=== PATIENT | male | born 1985 | race Hispanic/Latino ===

== ENCOUNTER 2024-09-02 03:28 | Emergency (ER) | payer BC ==
[~2024-09-02] VITALS: Ht 175.3 cm; Wt 81.6 kg
--- NOTE | 2024-09-02 03:45 | ERN ---
General Chief Complaint: Sepsis Stated Complaint: FEVER, WEAK, SHAKY ONSET 0130 Time Seen by MD: 03:40 Source: patient History of Present Illness Initial Comments Male healthy comes in with sudden onset of chills fever shakiness and weakness. He has felt low energy two days prior to today and then woke up this morning around 3:00 a.m. with the chills weakness fever. In the ED he does not endorse any specific organ system as the source of his illness. He states no chest pain no shortness of breath no nausea no vomiting no problems urinating no problems defecating no heart rhythm changes. Vital signs in the ED show hypertension tachycardia fever to 101.7 a sepsis alert was initiated. 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 No nausea or vo miting no diarrhea no chest pain no shortness of breath no palpitations no abdominal pain no headaches moves all extremities no pain in his extremities. Results Laboratory and Microbiology Lab and Micro Result Laboratory Tests Test 09/02/24 03:46 09/02/24 04:26 White Blood Count 3.4 K/uL (4.8-10.8) L Red Blood Count 5.30 MIL/uL (4.50-6.20) Hemoglobin 16.1 g/dL (14.0-18.0) Hematocrit 46.2 % (42-54) Mean Corpuscular Volume 87.2 fL (79-99) Mean Corpuscular Hemoglobin 30.4 pg (27.0-33.0) Mean Corpuscular Hemoglobin Concent 34.8 g/dL (32.0-36.0) Red Cell Distribution Width 11.7 % (11.0-15.5) Platelet Count 157 K/uL (130-400) Mean Platelet Volume 9.7 fL (7.5-10.5) Immature Granulocyte % (Auto) 0.6 % (0-1) Neutrophils (%) (Auto) 71.4 % (40.0-77.0) Lymphocytes (%) (Auto) 24.7 % (21.0-51.0) Monocytes (%) (Auto) 1.8 % (3.0-13.0) L Eosinophils (%) (Auto) 0.9 % (0.0-8.0) Basophils (%) (Auto) 0.6 % (0.0-5.0) Neutrophils # (Auto) 2.4 K/uL (1.8-7.7) Lymphocytes # (Auto) 0.8 K/uL (1.0-4.8) L Monocytes # (Auto) 0.1 K/uL (0.1-1.0) Eosinophils # (Auto) 0.03 K/uL (0.00-0.70) Basophils # (Auto) 0.02 K/uL (0.00-0.20) Absolute Immature Granulocyte (auto 0.02 K/uL (0-1) Nucleated Red Blood Cells 0.0 % (0.0-0.19) D-Dimer Quantitative (PE/DVT) 861 ng/mL (0-500) *H Sodium Level 145 mmol/L (136-145) Potassium Level 3.7 mmol/L (3.5-5.1) Chloride Level 105 mmol/L (101-111) Carbon Dioxide Level 29 mmol/L (21-32) Blood Urea Nitrogen 12 mg/dL (7-18) Creatinine 1.1 mg/dL (0.5-1.3) Glomerular Filtration Rate Calc 87 mL/min (>90) Random Glucose 105 mg/dL (70-105) Lactic Acid Level 3.3 mmol/L (0.8-2.5) H Total Calcium 9.0 mg/dL (8.5-10.1) Total Creatine Kinase 134 U/L (21-232) Troponin I High Sensitivity 4 ng/L (4-75) Influenza Type A Antigen Negative For Type A Influenza Type B Antigen Negative For Type B SARS-CoV-2, RNA, NAAT NEGATIVE SARS CoV-2 Group A Streptococcus Rapid negative (NEGATIVE) Urine Color COLORLESS (YELLOW) Urine Appearance CLEAR (CLEAR) Urine pH 6.5 (5.0-8.0) Urine Specific [place] 1.011 (1.001-1.031) Urine Protein NEGATIVE mg/dL (NEGATIVE) Urine Glucose (UA) NEGATIVE mg/dL (NEGATIVE) Urine Ketones NEGATIVE mg/dL (NEGATIVE) Urine Occult Blood NEGATIVE (NEGATIVE) Urine Nitrate NEGATIVE (NEGATIVE) Urine Bilirubin NEGATIVE mg/dL (NEGATIVE) Urine Urobilinogen 0.2 mg/dL (0.2-1.0) Urine Leukocyte Esterase NEGATIVE Tunde/uL MDM As the patient is a sepsis alert. He will receive fluids and nasal swabs and CBC UA urine culture. I will give him Tylenol for his fever. Patient's nasal swabs are negative for COVID strep and flu. His chest x-ray is negative. His CBC is noted for a low WBCs. Chemistry panel is normal except for a lactate of three. His D-dimer is high. I have talked to the patient and he told me that he has a family history on his father's side of clot formations. His father had a heart attack from clot and his grandfather had a stroke from clot. He also mentioned that when he woke up he had shortness of breath as his major complaint. I will order a CT PE study. The CTPE study was negative. Pt feels fine. I have no explanation for pt's transient symptoms or why they resolved so quickly. Pt is OK to go home. Will follow up with gis geographer. ED Course Orders Procedure Category Date Status Time Iv Insertion CPOE 09/02/24 Transmitted 03:29 Pulse Ox(Continuous) RT 09/02/24 Transmitted 03:29 Vital Signs Per CPOE 09/02/24 Transmitted Routine 03:29 12 Lead Ekg Tracing- EKG 09/02/24 Logged Technical 03:29 Cbc With Differential LAB 09/02/24 Complete 03:29 Blood Cult TANI 09/02/24 In Process 03:29 Urinalysis Profile LAB 09/02/24 Complete 03:29 Culture Urine TANI 09/02/24 In Process 03:29 Creatine Kinase, Total LAB 09/02/24 Complete 03:29 Troponin I High LAB 09/02/24 Complete Sensitivity 03:29 Lactic Acid LAB 09/02/24 Complete 03:29 Basic Metabolic Panel LAB 09/02/24 Complete 03:29 Covid Rna Naat LAB 09/02/24 Complete 03:36 Influenza Type A & B, LAB 09/02/24 Complete Rapid 03:36 Acetaminophen 325 Tab PHA 09/02/24 Complete (Tylenol 325mg Tab 04:00 Rapid (Group A Strep) LAB 09/02/24 Complete 03:48 D-Dimer LAB 09/02/24 Complete 03:48 Chest 1vw RAD 09/02/24 Taken 03:48 Ct Head/Brain W/O CT 09/02/24 Taken Contrast 03:49 0.9%Nacl 1000ml (Ns PHA 09/02/24 In Process 1000ml) 04:00 Ct Chest Pe Protocol CT 09/02/24 Taken Wwo Cont 04:59 Iohexol (Omnipaque) PHA 09/02/24 Complete 05:18 Current Medications Medications (Trade) Dose Ordered Sig/Rachel Route PRN Reason Start Time Stop Time Status Last Admin Dose Admin Acetaminophen (TYLenol 325MG TAB) 650 mg ONCE ONCE PO 09/02/24 04:00 09/02/24 04:01 DC 09/02/24 03:57 Iohexol (Omnipaque) 35,000 mg STK-MED ONCE IV 09/02/24 05:18 09/02/24 05:23 DC Sodium Chloride 1,000 ml @ 0 mls/hr Q0M IV 09/02/24 04:00 10/02/24 03:59 09/02/24 03:57 Vital Signs Date Time Temp Pulse Resp B/P (MAP) Pulse Ox O2 Delivery O2 Flow Rate FiO2 09/02/24 05:54 100.4 106 18 141/86 97 Room Air* 0 21 09/02/24 05:08 112 18 98 Room Air* 0 21 09/02/24 04:02 114 18 140/93 98 Room Air* 0 21 09/02/24 03:57 101.7 09/02/24 03:30 101.7 114 22 157/94 97 Room Air 0 DX & DISP Disposition: Discharge Departure Impression: Primary Impression: Fever Condition: Stable Referrals: SELF,REFERRAL (PCP) CHLOE MCFARLANE MD Sep 02, 2024 03:45
[2024-09-02] MEDS: acetaMINOPHEN 325 MG TAB PO ONE (03:57)
[2024-09-02] MEDS: 0.9%NACL 1000ML 1,000 ML IV SCH (03:57)
[2024-09-02 04:09] LABS: BASOPHILS # (AUTO) 0.02 K/uL (0.00-0.20); BASOPHILS % (AUTO) 0.6 % (0.0-5.0); EOSINOPHILS # (AUTO) 0.03 K/uL (0.00-0.70); EOSINOPHILS % (AUTO) 0.9 % (0.0-8.0); HEMATOCRIT 46.2 % (42-54); IMMATURE GRANULOCYTE ABSOLUTE 0.02 K/uL (0-1); LYMPHOCYTES # (AUTO) 0.8 K/uL (1.0-4.8); LYMPHOCYTES % (AUTO) 24.7 % (21.0-51.0); MEAN CORPUSCULAR HEMOGLOBIN 30.4 pg (27.0-33.0); MEAN CORPUSCULAR HGB CONC 34.8 g/dL (32.0-36.0); MEAN CORPUSCULAR VOLUME 87.2 fL (79-99); MONOCYTES # (AUTO) 0.1 K/uL (0.1-1.0); MONOCYTES % (AUTO) 1.8 % (3.0-13.0); NEUTROPHILS # (AUTO) 2.4 K/uL (1.8-7.7); NEUTROPHILS % (AUTO) 71.4 % (40.0-77.0); PLATELET COUNT (AUTO) 157 K/uL (130-400); RED CELL DISTRIBUTION WIDTH 11.7 % (11.0-15.5); WHITE BLOOD COUNT (AUTO) 3.4 K/uL (4.8-10.8)
[2024-09-02 04:19] LABS: CREATININE 1.1 mg/dL (0.5-1.3); POTASSIUM 3.7 mmol/L (3.5-5.1)
[2024-09-02 04:21] LABS: SARS-CoV-2, RNA, NAAT NEGATIVE SARS CoV-2 (NEGATIVE)
[2024-09-02 04:25] LABS: INFLUENZA TYPE A Negative For Type A (NEGATIVE); INFLUENZA TYPE B Negative For Type B (NEGATIVE)
--- NOTE | 2024-09-02 04:28 | NUR ---
PATIENT TAKEN TO CT SCAN AT THIS TIME.
[2024-09-02 04:34] LABS: APPEARANCE,URINE CLEAR (CLEAR); BILIRUBIN,URINE NEGATIVE (NEGATIVE); COLOR,URINE COLORLESS (YELLOW); GLUCOSE, URINE (UA) NEGATIVE (NEGATIVE); KETONES,URINE NEGATIVE (NEGATIVE); LEUKOCYTE ESTERASE ,URINE NEGATIVE Leu/uL (NEGATIVE); NITRATE,URINE NEGATIVE (NEGATIVE); OCCULT BLOOD,URINE NEGATIVE (NEGATIVE); PH,URINE 6.5 (5.0-8.0); PROTEIN,URINE NEGATIVE (NEGATIVE); UROBILINOGEN,URINE 0.2 mg/dL (0.2-1.0)
[2024-09-02 04:38] LABS: ADD UA MICROSCOPIC NO
[2024-09-02] MEDS ORDERED: IOHEXOL 350 MG/ML 100ML INFUS..BTL IV ONE (05:18)
[2024-09-02 05:55] VITALS: TEMP 100.4
[2024-09-02 06:32] VITALS: BP 135/90; PULSE 98; RESP 18; TEMP 99.7; O2SAT 98
--- NOTE | 2024-09-02 06:33 | NUR ---
Bailee molina in [facility] - 09/02/24 at [email or web address] CARRASCO AT [facility].
--- NOTE | 2024-09-02 08:04 | HMCIMG ---
PORTABLE CHEST RADIOGRAPH INDICATION: SOB, fever COMPARISON: 09/02/2024 FINDINGS: Heart size is normal. The pulmonary vascularity and tomasz appear normal. No abnormal pulmonary parenchymal opacity or consolidation identified. No significant pleural effusion noted. No pneumothorax detected. IMPRESSION: No radiographic evidence for any acute cardiopulmonary process.
--- NOTE | 2024-09-02 08:04 | HMCIMG ---
CT ANGIOGRAM OF THE CHEST WITHOUT AND WITH CONTRAST. CT RECONSTRUCTIONS INDICATION: Shortness of breath TECHNIQUE: Routine axial images using 3 mm slice thickness were acquired from the lung apices to the bases before and after the intravenous administration of 100 mL of Omnipaque 350 contrast material using the pulmonary embolism protocol. Maximum Intensity Projection imaging in the sagittal and coronal planes were also provided. CT was performed with one or more of the following dose reduction techniques: Automated exposure control, adjustment of the mA and/or kV according to patient size, or use of iterative reconstruction technique. COMPARISON: None FINDINGS: The contrast bolus is of good quality for diagnosis of pulmonary embolism. The heart size is within normal limits without pericardial effusion. The main pulmonary arteries, segmental branches, and visualized subsegmental pulmonary arteries appear normal without intraluminal filling defects. Pulmonary trunk is not enlarged. No evidence for thoracic aortic aneurysm or dissection. The origins of the great vessels and thoracic aorta appear normal. The visible portions of the trachea and airways are patent. No pleural effusion, pneumothorax, abnormal opacity or consolidation, pulmonary nodule, or mass identified. No axillary, hilar, or mediastinal lymphadenopathy detected. Limited views of the upper abdomen appear unremarkable. Visible osseous structures are intact. IMPRESSION: No evidence for pulmonary embolism.
--- NOTE | 2024-09-02 08:05 | HMCIMG ---
CT HEAD WITHOUT CONTRAST INDICATION: Sudden fever TECHNIQUE: Noncontrast axial helical CT images from the vertex through the skull base using 5 mm slice thickness without contrast material. CT was performed with one or more of the following dose reduction techniques: Automated exposure control, adjustment of the mA and/or kV according to patient size, or use of iterative reconstruction technique. COMPARISON: None FINDINGS: The cerebral and cerebellar hemispheres are age-appropriate in appearance. No evidence for abnormal extra-axial fluid collections or masses. The ventricles and sulci are normal in size and configuration. No evidence for intracranial parenchymal, epidural, or subdural hemorrhage, mass effect or midline shift. The kitchen-white matter differentiation is well preserved. No secondary evidence to suggest acute ischemia. The brainstem and cerebellum appear normal. The visualized orbits appear unremarkable. The visible paranasal sinuses and mastoid air cells are clear. The calvarium appears normal. IMPRESSION: No acute intracranial process identified.
--- NOTE | 2024-09-02 11:25 | EKG ---
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
== END 2024-09-02 07:02 | disposition home or self-care (01) ==
LOC: EDH 03:28
DX: R50.9 Fever, unspecified (principal); R53.1 Weakness; I10 Essential (primary) hypertension; Z20.822 Contact with and (suspected) exposure to COVID-19
CPT/HCPCS: 99285; 70450; 71045; 87635; 82550; 84484; 80048; 85025; 85378; 87040 ×2; 87086; 87880; 87804 ×2; 83605; 81003; 36415; 71270; 93005; J7030; Q9967